=== PATIENT | male | born 1945 | race Caucasian/White ===

== ENCOUNTER → 2021-01-20 16:12 | Outpatient (REF) | payer MEDICARE, OTHER, SELFPAY | LOC: ANHLAB 16:12 | PROVIDERS: PCP Internal Medicine; Visit Provider Nurse Practitioner | DX: L30.8 Other specified dermatitis (principal) | CPT/HCPCS: 88305 ==

== ENCOUNTER → 2021-09-22 11:28 | Outpatient (CLI) | payer MEDICARE, OTHER, SELFPAY ==
--- NOTE | ~2021-09-22 | CT_ITS ---
EXAMINATION: CT pelvis wo con DATE: 09/22/2021 11:58 INDICATION: Left lower quadrant pain TECHNIQUE: Computed tomography (CT) of the pelvis was performed without intravenous contrast. The dos e-length product (DLP) was 605.54 mGy-cm. Automated exposure control and iterative reconstruction josh hnique were employed. COMPARISON: None FINDINGS: The pelvic viscera are unremarkable. There is a partially imaged 6 cm cyst of the right kid delia. There are no pathologically enlarged pelvic lymph nodes. Calcified atherosclerosis is noted. The re is moderate to severe lower lumbar spondylosis. There are small inguinal hernias containing fat. IMPRESSION: 1. No CT correlate for the patient's symptoms. Reviewed, dictated and finalized at location F. [facility] DIP [facility]
== END ==
PROVIDERS: Visit Provider Surgery
DX: R10.32 Left lower quadrant pain (principal)
CPT/HCPCS: 72192

== ENCOUNTER 2021-11-05 07:41 | Outpatient (CLI) | payer MEDICARE, OTHER, SELFPAY ==
--- NOTE | 2021-11-05 08:30 | ECG_ITS ---
Measurements Intervals [place] Rate: 65 P: -84 NE: 213 QRS: 49 QRSD: 162 T: 31 QT: 447 QTc: 468 Interpretive Statements SINUS OR ECTOPIC ATRIAL RHYTHM WITH FIRST DEGREE AV BLOCK VENTRICULAR PREMATURE COMPLEX RIGHT BUNDLE BRANCH BLOCK INFERIOR INFARCT, AGE INDETERMINATE BASELINE ARTIFACT- I, II, III, AVR, AVL, AVF, V3-V6 ABNORMAL ECG Electronically Signed On 11-05-2021 9:16:07 [employer] by Brad Baldwin D.O.
[2021-11-05 08:59] LABS: Anion Gap 5 mmol/L (8-16); Blood Urea Nitrogen 17 mg/dL (9-20); Calcium 8.7 mg/dL (8.4-10.2); Carbon Dioxide 29 mmol/L (22-30); Chloride 100 mmol/L (98-107); Estimated Glomerular Filt Rate > 60; Glucose 282 mg/dL (65-110); Potassium 4.4 mmol/L (3.4-5.0); Sodium 134 mmol/L (137-145)
== END 2021-11-05 07:42 | disposition home or self-care (01) ==
LOC: ANHSURGERY 07:46
PROVIDERS: Anesthesiology; PCP Internal Medicine; Visit Provider Surgery
DX: K40.20 Bilateral inguinal hernia, without obstruction or gangrene, not specified as recurrent (principal); E11.9 Type 2 diabetes mellitus without complications; E78.00 Pure hypercholesterolemia, unspecified; Z01.818 Encounter for other preprocedural examination; I45.10 Unspecified right bundle-branch block; I44.0 Atrioventricular block, first degree
CPT/HCPCS: 36415; 80048; 86850; 86900; 86901; 93005

== ENCOUNTER 2021-11-10 01:31 | Day surgery (SDC) | payer MEDICARE, OTHER, SELFPAY ==
--- NOTE | 2021-11-03 09:53 | PC.NURSE ---
Report to the Outpatient Waiting Room, entrance under the green pavilion located off [facility], at time _0630 on date __11/10/21 . OR Time: . - You and your visitor will be asked a series of questions to screen for COVID 19 for your protection. - A mask is required within the hospital. Preoperative COVID Testing Requirements: No COVID Test needed if: (proof is required; if not received patient will have Rapid Test prior to entry) - Patient has received COVID Vaccine at least 14 days prior to procedure date or - Patient has positive COVID test result within last 90 days of surgery date. COVID Test needed if above criteria is not met If not COVID vaccinated a COVID test must be conducted within 72 hours of surgery and patient is asked to isolate self from time of testing until procedure. You will go to the [facility] for your COVID testing. The [facility] site is located at the corner of [address] [facility]. You will only be called if COVID results are positive and your surgeon may reschedule your elective surgery date. Patients may have clear liquids (water, carbonated beverages, clear teas, apple juice) until 3 hours prior to surgery with a maximum of 20 ounces. - No food from midnight until time of surgery - Infants may have breast milk until 4 hours before surgery, formula 6 hours prior to surgery. - Children will be allowed to drink immediately following surgery. If applicable, please bring a bottle or sippy cup to assist with drinking. Juice, water, soda, and popsicles are readily available. For infants on formula, please bring formula the day of surgery. Pacifiers are allowed. Take the following medications with a SIP of water the morning of surgery: _RANOLAZINE Medications to discontinue per physician __CLOPIDOGREL 5-7 DAYS PRE OP PER DR BAXTER Date to take last dose Please no make-up, nail citizen of [place], hairspray, perfume, deodorant, or body powder the day of surgery. No jewelry (including any body piercings) or valuables the day of surgery, leave them at home. Please take a shower or bath the night before, or the morning of, surgery with an antibacterial soap. Wear comfortable, loose fitting clothing. Children are encouraged to wear pajamas. - Jewelry must be removed prior to entering the operating room. Rings and piercings that are not removed may be cut off. - The hospital will not accept responsibility for valuables. - Please leave all valuables, including medications, at home the day of surgery. HIBICLENS SHOWER MORNING OF SURGERY If you are going home after surgery, a licensed team cdl driver must drive you home. - NO public transportation without another adult. - We recommend that an adult stay with you for 24 hours following discharge. - We also recommend that you do not drive, make important decision, drink alcoholic beverages, or take any drugs that were not prescribed by your health care provider for at least 24 hours after your discharge time. One visitor will be allowed to accompany the patient into the hospital. Patients visitor will be instructed to remain with patient at all times or leave the building. We will allow the visitor to come back to the postoperative area when patient is ready. Follow any additional instructions given to you from your surgeon. Telephone instructions given to _PATIENT and asked if any additional questions and then verbalized understanding. Patient advised to call surgeon office or pre surgery nurse liaison [phone] if any additional questions.
[2021-11-03 10:01] VITALS: BMI 31.6
--- NOTE | 2021-11-09 09:40 | WPDANESEPPF ---
Anes - Initial Pre Proc Eval Procedure: Operation Date: 11/10/21 08:30 Proposed Procedures p Laparoscopic Bilateral Inguinal Hernia Repair with Mesh, Davinci Assisted - Manuel Frazier DO Date/Time: 11/09/21 09:40 Surgeon: Manuel Frazier DO Pre Op Diagnosis: bilat inguinal hernia Patient Data Age: 76 Gender: M Height: 1.85 m Weight: 108.9 kg Allergies Allergy/AdvReac Type Severity Reaction Status Date / Time paroxetine Allergy Severe WILD Verified 11/10/21 06:40 DREAMS, WAKE UP ON FLOOR. Home Medications Medication Instructions Recorded Confirmed Type aspirin [Aspirin Childrens] 81 mg PO DAILY 08/16/19 11/10/21 History ranolazine 500 mg PO Q12H 08/16/19 11/10/21 History sitagliptin 50 mg-metformin 1,000 See Rx Instructions .ROUTE 05/26/20 11/10/21 Rx mg tablet .COMPLEX #60 tablet atorvastatin 10 mg tablet See Rx Instructions .ROUTE 09/07/21 11/10/21 Rx .COMPLEX #90 tablet glimepiride 2 mg tablet 1 mg PO QAM #45 tablet 09/07/21 11/10/21 Rx clopidogrel 75 mg PO QPM 11/03/21 11/10/21 History lisinopril 20 mg PO QPM 11/03/21 11/10/21 History metoprolol succinate 25 mg PO QPM 11/03/21 11/10/21 History Patient hx anesthesia problems: none Family hx anesthesia problems: none Results Review: All pre-operative results and documents have been reviewed as part of the pre-operative evaluation. 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 [facility] Gastrointestinal disorder Hiatal hernia Gout Hypercholesteremia Hypertension Musculoskeletal disorder Fell down deck stairs in 2017, left quad tendon rupture, history of falls Myocardial infarction 1987 Respiratory disorder Pleural plaques from asbestos Sleep apnea Surgical History Surgical History (Updated 11/09/21 @ 09:40 by Jim Kasper DO) H/O angioplasty H/O cardiac catheterization 2014 History of cholecystectomy History of coronary artery stent placement History of orthopedic surgery Meniscus repair Family History Family History Father Family history of heart disease in male family member before age 55 Mother Family history of heart disease in male family member before age 55 Other Hypertension Social History Social History Smoking packs per day: 2.5 Smoking cigarettes per day: 50.0 Years smoked: 35 Smoking pack-years: 87.50 Smoking status: Former smoker Tobacco type: cigarettes Smoking end date: 09/12/95 Alcohol intake: never Living arrangements: with family Spiritual care concerns: No Anes - Eval Final PreProcedure Day of Procedure 11/09/21 09:40 Patient weight: obese Heart: regular rate and rhythm Lungs: clear to auscultation and normal air movement Airway: Mallampati scale class III Neurological: alert and oriented Last oral intake: >/= 8 hours ASA classification: III Emergent: no Anesthetic plan: proceed Anesthesia type and monitoring: general ETT and standard monitoring Results Review: All pre-operative results and documents have been reviewed as part of the pre-operative evaluation. Informed Consent: The patient's anesthetic plan and its attendant risks and benefits were discussed with the patient/family/POA. Questions were solicited and answers provided to the satisfaction of the patient/family/POA.
[2021-11-10] VITALS (9 sets, daily range): BP systolic 104–135; BP diastolic 52–73; PULSE 60–72; RESP 13–18; TEMP 36.3–36.9; O2SAT 97–100
[2021-11-10] MEDS: LACTATED RINGERS 1,000 ML 30 ML IV CONT ×2 (07:00→10:25)
[2021-11-10] MEDS: ACETAMINOPHEN 500 MG TABLET 1000 MG PO (07:10)
[2021-11-10 07:20] LABS: Glucose Point of Care 164 mg/dl (65-105)
--- NOTE | 2021-11-10 07:20 | PM.IMHP ---
H&P: HPI History of Present Illness Date/Time: 11/10/21 07:20 Chief Complaint: bilateral inguinal hernia Narrative: 76 yo man presents for bilateral inguinal hernia repair. He was presenting mostly with LLQ pain and CT showed evidence of small bilateral inguinal hernias. Review of Systems Review of Systems: All systems reviewed & are unremarkable except as noted in HPI and below Constitutional: Constitutional: Denies chills, Denies fever(s), Denies headache(s) and Denies weight loss Eyes: Eyes: Denies change in vision ENT: Denies dizziness, Denies headache(s), Denies neck mass and Denies throat swelling Cardiovascular: Cardiovascular: Denies chest pain, Denies lightheadedness and Denies dyspnea Respiratory: Respiratory: Denies cough, Denies dyspnea and Denies wheezing Gastrointestinal: Gastrointestinal: Denies abdominal pain, Denies change in bowel habits, Denies nausea and Denies vomiting Genitourinary: Genitourinary: Denies hematuria and Denies dysuria Musculoskeletal: Musculoskeletal: Reports as per HPI Integumentary/Breasts: Skin/Breast: Reports as per HPI Neurologic: Denies dizziness and Denies headache(s) Allergic/Immunologic: Allergic/Immunologic: Denies throat swelling and Denies wheezing [facility] Past Medical History Medical History (Updated 11/10/21 @ 07:21 by Manuel Frazier DO) Anxiety Arthritis Asthma BPH (benign prostatic hyperplasia) Congestive heart failure Coronary artery disease Angioplasty and cardiac stent placed 2014, 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 [facility] Gastrointestinal disorder Hiatal hernia Gout Hypercholesteremia Hypertension Musculoskeletal disorder Fell down deck stairs in 2018, left quad tendon rupture, history of falls Myocardial infarction 1987 Respiratory disorder Pleural plaques from asbestos Sleep apnea Surgical History Surgical History (Updated 11/09/21 @ 09:40 by Jim Kasper DO) H/O angioplasty H/O cardiac catheterization 2014 History of cholecystectomy History of coronary artery stent placement History of orthopedic surgery Meniscus repair Family History Family History Father Family history of heart disease in male family member before age 55 Mother Family history of heart disease in male family member before age 55 Other Hypertension Social History Social History Smoking packs per day: 2.5 Smoking cigarettes per day: 50.0 Years smoked: 35 Smoking pack-years: 87.50 Smoking status: Former smoker Tobacco type: cigarettes Smoking end date: 09/12/95 Alcohol intake: never Living arrangements: with family Spiritual care concerns: No Meds Home Medications and Allergies Home Medications Medication Instructions Recorded Confirmed Type aspirin [Aspirin Childrens] 81 mg PO DAILY 08/16/19 11/10/21 History ranolazine 500 mg PO Q12H 08/16/19 11/10/21 History sitagliptin 50 mg-metformin 1,000 See Rx Instructions .ROUTE 05/26/20 11/10/21 Rx mg tablet .COMPLEX #60 tablet atorvastatin 10 mg tablet See Rx Instructions .ROUTE 09/07/21 11/10/21 Rx .COMPLEX #90 tablet glimepiride 2 mg tablet 1 mg PO QAM #45 tablet 09/07/21 11/10/21 Rx clopidogrel 75 mg PO QPM 11/03/21 11/10/21 History lisinopril 20 mg PO QPM 11/03/21 11/10/21 History metoprolol succinate 25 mg PO QPM 11/03/21 11/10/21 History Allergies Allergy/AdvReac Type Severity Reaction Status Date / Time paroxetine Allergy Severe WILD Verified 11/10/21 06:40 DREAMS, WAKE UP ON FLOOR. Exam Const: General: no acute distress and alert Orientation/consciousness: patient oriented x3 HENMT: Head: normocephalic and atraumatic Ears: hearing grossly normal bilaterally General nose exam: Normal nares present Mouth: Yes Normal oral and palatal mucosa present Eyes: Periorbital: periorbital findings normal Sclera: scle
--- NOTE | 2021-11-10 07:22 | WPDHPUPDATE1 ---
History and Physical Update Update Date/Time: 11/10/21 07:22 History and Physical has been reviewed, including an updated exam of the patient. There are NO changes in the patient's condition. Risks, benefits, and alternatives have been discussed and questions answered. Patient agrees to proceed with procedure.
[2021-11-10] MEDS: KETOROLAC 15 MG/ML VIAL (*BKC) IV PUSH (08:03)
[2021-11-10] MEDS: ceFAZolin 2 GM/D5W 50 ML 2 GM/50 ML BAG IVPB (08:33)
--- NOTE | 2021-11-10 10:20 | W.PM.PROC2 ---
Procedure Note - Detailed Date of Procedure 11/10/21 Pre-op Diagnosis bilateral inguinal hernia Post-op Diagnosis same (Bilateral direct inguinal hernias) Procedure Performed Laparoscopic bilateral inguinal hernia repair with mesh, da Aubrey assisted Surgeon Manuel Frazier DO Anesthesia general and local (0.5% bupivacaine with epinephrine) Indications This is a 76-year-old man who presented with left lower quadrant and left groin pain for the past couple months. His pain was worse with activity. On exam it was difficult to appreciate a definite hernia. A CT of his pelvis was obtained and this showed evidence of small bilateral fat containing inguinal hernias. Discussions were made with the patient about treatment options and decision was made to proceed with laparoscopic bilateral inguinal hernia repair with mesh, da Aubrey assisted. Findings Laparoscopic bilateral inguinal hernia repair was performed. A robotic transabdominal preperitoneal approach was utilized. The patient was found to have bilateral direct inguinal hernias. These were small and only contained preperitoneal fat. No other significant abnormalities were identified. He did have some adhesions in the right upper quadrant from his previous open cholecystectomy. A preperitoneal pocket was created on each side and a large 3DMax mid mesh was placed on each appropriate side. No specimens were obtained for pathology. Description of Procedure Procedure as well as risks, benefits, and alternatives were discussed with the patient. Written consent was obtained and placed in chart prior to procedure. Patient was brought back to surgical suite. He was placed supine on operating table. Time-out was done to confirm patient and procedure. He was then intubated by Anesthesia Department. His abdomen was prepped and draped in sterile fashion using chlorhexidine prep. 0.5% bupivacaine with epinephrine was infiltrated at each location for incision. An 8 mm incision was made in the left lateral abdomen, and a 5 mm Optiview trocar was advanced through the abdominal layers under direct visualization. Once inside the abdominal cavity, carbon dioxide insufflation was used to create a pneumoperitoneum. A camera was inserted and the abdominal cavity was inspected. The patient was placed in slight Trendelenburg position. An 8 millimeter incision was made on the right lateral abdomen and an 8 millimeter trocar was inserted under direct visualization. Another 8 millimeter incision was made just superior to the umbilicus and an 8 millimeter trocar was inserted under direct visualization. The 5 mm port was then removed and this was replaced with another 8 mm robotic port. The robotic arms were brought up to the patient's bedside and secured to the ports. The camera and instruments were inserted. I then moved over to the robotic console and took control of the camera and instruments. After careful inspection of the abdominal cavity, I began scoring the peritoneum along the left lower quadrant using scissors with electrocautery. The preperitoneal plane was entered and this was carefully dissected caudally along the inferior epigastric vessels. Careful dissection with scissors with electrocautery and blunt dissection was used to continue this dissection. I dissected far enough laterally to allow for mesh placement, and also dissected medially to identify the pubic arch and William's ligament. The hernia sac was identified and carefully dissected posteriorly. The cord contents were also identified and the peritoneum was carefully dissected far enough posteriorly to allow for mesh placement. Once an adequate pocket was created, I then placed the mesh within the preperitoneal pocket and carefully unfolded it. The mesh was centered on the hernia defect with adequate overlap circumferentially. The inferior edge of the mesh was inspected to ensure that it was far enough away from the peritoneal edge. The mesh appea
[2021-11-10 10:32] LABS: Glucose Point of Care 177 mg/dl (65-105)
== END 2021-11-10 12:50 | disposition home or self-care (01) ==
PROVIDERS: PCP Internal Medicine; Visit Provider Surgery
PROC: 8E0Y4CZ Robotic Assisted Procedure of Lower Extremity, Percutaneous Endoscopic Approach (ICD-10-PCS; CPT 49650; principal; 2021-11-10 08:30)
DX: K40.20 Bilateral inguinal hernia, without obstruction or gangrene, not specified as recurrent (principal); I11.0 Hypertensive heart disease with heart failure; I50.9 Heart failure, unspecified; E78.00 Pure hypercholesterolemia, unspecified; E11.9 Type 2 diabetes mellitus without complications; N40.0 Benign prostatic hyperplasia without lower urinary tract symptoms; I25.10 Atherosclerotic heart disease of native coronary artery without angina pectoris; J45.909 Unspecified asthma, uncomplicated; F41.9 Anxiety disorder, unspecified; M10.9 Gout, unspecified; I25.2 Old myocardial infarction; J92.0 Pleural plaque with presence of asbestos; G47.30 Sleep apnea, unspecified; Z79.84 Long term (current) use of oral hypoglycemic drugs; Z79.82 Long term (current) use of aspirin; Z79.02 Long term (current) use of antithrombotics/antiplatelets; Z95.5 Presence of coronary angioplasty implant and graft; Z87.891 Personal history of nicotine dependence; E66.9 Obesity, unspecified; Z68.32 Body mass index [BMI] 32.0-32.9, adult
CPT/HCPCS: 49650; S2900; 82948; A9270; C1781; J0330; J0690; J1100; J1885; J2270; J2405; J2704; J7030; J7120

== ENCOUNTER → 2022-03-26 02:04 | Outpatient (CLI) | payer MEDICARE, OTHER, SELFPAY ==
[2022-03-26 17:31] LABS: SARS-CoV-2 RNA PCR Negative
== END ==
PROVIDERS: PCP Internal Medicine; Visit Provider Nurse Practitioner
DX: R68.89 Other general symptoms and signs (principal); Z20.822 Contact with and (suspected) exposure to COVID-19
CPT/HCPCS: C9803; U0003; U0005

== ENCOUNTER 2023-02-08 12:08 | Outpatient (NON) | payer MEDICARE, OTHER, SELFPAY | END 2023-02-08 12:09 | disposition home or self-care (01) | LOC: ANHLAB 02-09 12:11 | PROVIDERS: PCP Family Medicine; Visit Provider Nurse Practitioner | DX: L82.1 Other seborrheic keratosis (principal) | CPT/HCPCS: 88305 ==

== ENCOUNTER 2023-12-10 11:50 | Emergency (ER) | payer MEDICARE, OTHER, SELFPAY ==
[2023-12-10 12:32] VITALS: BP 147/70; PULSE 68; RESP 18; TEMP 36.8; O2SAT 97
--- NOTE | 2023-12-10 13:13 | ED.GENADULT ---
HPI - General Adult General Chief complaint: Eye Problems Stated complaint: lt eye irritation Time Seen by Provider: 12/10/23 13:13 Source: patient, RN notes reviewed and old records reviewed Mode of arrival: ambulatory Limitations: no limitations History of Present Illness HPI narrative: 78-year-old male presents to the [facility] with complaints of left eye tearing and feeling like the bags under his eyes ordered larger than normal. Has a gritty feeling but no foreign body sensation, no visual changes, no pain. Also has complaints of a runny nose for ?years. ? Patient denies using contact lenses. Patient does were glasses Symptoms started Tuesday, 3 days ago after he cut some grass. Denies any pain. Denies any trauma to the eye. Does not feel like there is a foreign body in the eye No treatment prior to arrival Onset (ago): day(s) (3) Treatments prior to arrival: none Related Data Home Medications Medication Instructions Recorded Confirmed aspirin 81 mg chewable tablet 81 mg PO DAILY 08/16/19 10/05/22 (Aspirin Childrens) ranolazine 500 mg tablet,extended 500 mg PO Q12H 08/16/19 10/05/22 release,12 hr cholecalciferol (vitamin D3) 25 25 mcg PO DAILY 02/03/23 mcg (1,000 unit) capsule Allergies Allergy/AdvReac Type Severity Reaction Status Date / Time paroxetine Allergy Severe WILD Verified 12/10/23 12:43 DREAMS, WAKE UP ON FLOOR. povidone-iodine Allergy Mild Rash Verified 12/10/23 12:43 [From Betadine] Review of Systems Review of Systems: All systems reviewed & are unremarkable except as noted in HPI and below Constitutional: Constitutional: Reports no additional constitutional complaints Eyes: Eyes: Reports as per HPI, Reports eye discharge (Clear, tearing), Reports irritation and Reports itchy eyes ENT: Reports as per HPI and Reports nasal discharge Cardiovascular: Cardiovascular: Reports no additional cardiovascular complaints, Denies chest pain and Denies dyspnea Respiratory: Respiratory: Reports no additional respiratory complaints, Denies chest congestion, Denies cough and Denies dyspnea Gastrointestinal: Gastrointestinal: Reports no additional gastrointestinal complaints, Denies abdominal pain, Denies nausea and Denies vomiting Musculoskeletal: Musculoskeletal: Reports no additional musculoskeletal complaints Integumentary/Breasts: Skin/Breast: Reports system reviewed and no additional complaints, except as docu Neurologic: Reports system reviewed and no additional complaints, except as documented Psychiatric: Psychiatric: Reports no additional psychiatric complaints Allergic/Immunologic: Allergic/Immunologic: Reports no additional allergic/immunologic complaints [facility] Past Medical History Medical History Anxiety Arthritis Asthma BPH (benign prostatic hyperplasia) Congestive heart failure Coronary artery disease Angioplasty and cardiac stent placed 2014, 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 [facility] Diabetes Distal radial fracture Gastrointestinal disorder Hiatal hernia Gout Hypercholesteremia Hypertension Mixed hyperlipidemia Musculoskeletal disorder Fell down deck stairs in 2017, left quad tendon rupture, history of falls Myocardial infarction 1987 Respiratory disorder Pleural plaques from asbestos Sleep apnea Surgical History Surgical History H/O angioplasty H/O cardiac catheterization 2014 History of cholecystectomy History of coronary artery stent placement History of orthopedic surgery Meniscus repair Family History Family History Father Family history of heart disease in male family member before age 55 Mother Family history of heart disease in male family member before age 55 Other Hypertension Social History Social History (Reviewed 12/10/23 @ 18:32 by Ana Beltran, APR
== END 2023-12-10 13:35 | disposition home or self-care (01) ==
PROVIDERS: Emergency Provider Nurse Practitioner; PCP Family Medicine
DX: H10.9 Unspecified conjunctivitis (principal); Z87.891 Personal history of nicotine dependence; M19.90 Unspecified osteoarthritis, unspecified site; J45.909 Unspecified asthma, uncomplicated; N40.0 Benign prostatic hyperplasia without lower urinary tract symptoms; I25.10 Atherosclerotic heart disease of native coronary artery without angina pectoris; Z95.5 Presence of coronary angioplasty implant and graft; E11.9 Type 2 diabetes mellitus without complications; M10.9 Gout, unspecified; E78.00 Pure hypercholesterolemia, unspecified; I10 Essential (primary) hypertension; E78.2 Mixed hyperlipidemia; I25.2 Old myocardial infarction; Z79.82 Long term (current) use of aspirin
CPT/HCPCS: 99213; G0463

== ENCOUNTER 2025-06-20 12:53 | Emergency (ER) | payer MEDICARE, OTHER, SELFPAY ==
[2025-06-20] VITALS (9 sets, daily range): BP systolic 110–138; BP diastolic 57–82; PULSE 52–75; RESP 18–20; TEMP 36.4; O2SAT 93–100
--- NOTE | ~2025-06-20 | CT_ITS ---
EXAMINATION: CT LE LT wo con DATE: 06/20/2025 15:27 INDICATION: Abnormal left femur x-ray post fall TECHNIQUE: High resolution computed tomography (CT) of the left femur from the hip to [id number] was performed without intravenous contrast. Additional sagittal and coronal reconstructions were performed. Automated exposure control and iterative reconstruction technique were employed. The dose-length product was 1231.62 mGy-cm. COMPARISON: Radiographs dated 06/30/2025 and 11/20/2017 FINDINGS: Bone alignment is normal. No fracture. Mild osteoarthritis at the left hip with no joint effusion. Left knee joint space appears relatively preserved on nonweightbearing imaging. No left knee joint effusion. There are a few small chronic heterotopic ossicles in the thickened distal quadriceps tendon campos ggesting sequela of chronic tear and/or surgery. There are 3 lucent likely suture anchor tracks along the superficial aspect of the proximal patellar suggesting prior quadriceps tendon repair. There is suggestion of a subtle ovoid intramuscular hematoma within the left vastus lateralis muscle at the proximal to mid left thigh which measures approximately 4.7 x 3.1 cm in transaxial dimensions and extends proximally 9 cm craniocaudally. Subcutaneous edema along the lateral aspect of the left thigh most prominent over the region of the suspected hematoma. No free fluid in the visualized pelvis. No pathologically enlarged left pelvic or inguinal lymphadenopathy. IMPRESSION: 1. Suggestion of an intramuscular hematoma along the proximal left vastus lateralis muscle. No acute osseous adenopathy. 2. Suture anchor tracks at the proximal patella consistent with prior quadriceps tendon repair with a few small small chronic heterotopic ossicles in the thickened tendon which are likely sequela of trauma or surgery. Correlate with clinical/surgical history. Reviewed, dictated and finalized at location A. IMPRESSION: 1. Suggestion of an intramuscular hematoma along the proximal left vastus later riki muscle. No acute osseous adenopathy. 2. Suture anchor tracks at the proximal patella consistent with prior quadricep s tendon repair with a few small small chronic heterotopic ossicles in the thic kened tendon which are likely sequela of trauma or surgery. Correlate with clin ical/surgical history.
--- NOTE | ~2025-06-20 | CT_ITS ---
EXAMINATION: CT brain wo con DATE: 06/20/2025 13:24 INDICATION: Fall with head injury TECHNIQUE: Computed tomography (CT) of the head was performed without intravenous contrast. Sagittal and coronal reconstructions were performed. The mA was adjusted according to patient size. Iterative reconstruction technique was employed. The dose-length product was 605.33 mGy-cm. COMPARISON: head CT dated 03/02/2009 FINDINGS: Moderate-sized right frontal scalp hematoma. No fracture. No acute intracranial hemorrhage, acute infarction or abnormal extra axial fluid collection. There is mild scattered white matter hypoattenuation consistent with chronic small vessel ischemic disease. Symmetric prominence of the sulci and ventricles consistent with mild age-appropriate diffuse cerebral volume loss. No mass/mass effect. Changes of bilateral intraocular lens replacement. The orbits, paranasal sinuses and mastoid air cells are normal. Intracranial calcified cerebral atherosclerosis is noted. IMPRESSION: 1. Right frontal scalp hematoma. No fracture or acute intracranial process. 2. Age-related changes including mild diffuse volume loss and mild scattered white matter hypoattenuation consistent with chronic small vessel ischemic disease. Reviewed, dictated and finalized at location A. IMPRESSION: 1. Right frontal scalp hematoma. No fracture or acute intracranial process. 2. Age-related changes including mild diffuse volume loss and mild scattered wh ite matter hypoattenuation consistent with chronic small vessel ischemic diseas e.
--- NOTE | ~2025-06-20 | XR_ITS ---
Clinical history:Fall. Injury. EXAM:X-ray femur left minimum 2 views TECHNIQUE:4 images of the left Comparisons:11/20/2017 FINDINGS: There is bowel gas and stool projecting over the pelvis which limits evaluation. Mild degenerative change in the left hip. No fracture identified about the left hip. There are two less than 7 mm radiopaque densities about the suprapatellar space. Differential includes avulsion fractures of indeterminate age or loose bodies. Other etiologies are possible. Bones appear osteopenic. [ No sclerotic bone lesions.] Small left-sided suprapatellar effusion. Soft tissue swelling about the left knee. IMPRESSION: 1. No fracture identified about the left hip. 2.There are two less than 7 mm radiopaque densities about the suprapatellar space. Differential includes avulsion fractures of indeterminate age or loose bodies. Other etiologies are possible. If the patient cannot bear weight, an MRI is recommended. Reviewed, dictated and finalized at location Q. IMPRESSION: 1. No fracture identified about the left hip. 2.There are two less than 7 mm radiopaque densities about the suprapatellar spa ce. Differential includes avulsion fractures of indeterminate age or loose bodi es. Other etiologies are possible. If the patient cannot bear weight, an MRI is recommended.
--- NOTE | ~2025-06-20 | CT_ITS ---
EXAMINATION: CT facial & cervical spine wo COMPARISON: None HISTORY: fall, facial injury TECHNIQUE: Axial images were obtained without IV contrast. Sagittal, coronal reconstruction images were obtained from the axial views. CT scan performed using dose optimization techniques including the following automated exposure control; adjustment of mA and/or kV; use of iterative reconstruction technique. Automatic exposure control was used to reduce radiation dose. Permanent radiation dose record is archived to PACS. FINDINGS: CT FACIAL BONES: The nasal bones are intact. The anterior maxillary sinus hyman and zygomatic arches are intact. Temporomandibular joints are intact. Orbital floors and medial orbits are intact. There is no retrobulbar hemorrhage. Minimal soft tissue swelling noted overlying the right zygomatic arch with minimal right-sided preseptal swelling. The remaining soft tissues are unremarkable. CT cervical spine: Soft tissues unremarkable. The lung apices demonstrate partially imaged small right pleural effusion. No fracture or subluxation identified. There is severe loss of disc height at C3-4, C4-5 C5-6 and C6-7 with moderate to severe canal and foraminal stenosis. Outpatient MRI is recommended. IMPRESSION: 1. Posttraumatic soft tissue changes. No acute fractures identified in the facial bones or cervical spine. Incidental findings above Reviewed, dictated and finalized at location P. IMPRESSION: 1. Posttraumatic soft tissue changes. No acute fractures identified in the faci al bones or cervical spine. Incidental findings above
--- NOTE | 2025-06-20 15:00 | ED_ITS ---
HPI - General Adult General Chief complaint: Fall Stated complaint: Head/hip injury after fall 2 days ago,+anticoag Time Seen by Provider: 06/20/25 13:51 History of Present Illness HPI narrative: Lj Young is a 80-year-old male who presents today after a fall that he had 3 days ago. Explains that he was having a bad dream and he fell out of bed striking his head on the table and his left at femur on the bed rail. He states he is able to get himself back up there is a small cut his forehead he went to the bathroom cleaning it up and put some antibiotic ointment over he was feeling okay. Later that day he did go to a different follow-up appointment with his factory hand and came back home. He then followed up with his primary regarding the fall because he started to get quite a large bruise on his face and his primary said he need to go to the emergency room. He states that he is on Eliquis recently as he is scheduled for a CT this upcoming Tuesday. Denies any changes with his vision states he does not even have a headache he is complaining of pain to his left hip proximal femur area, however he states that the Tylenol that he took today has improved his pain. Related Data Home Medications ?Medication ?Instructions ?Recorded ?Confirmed ?Last Taken ?Type aspirin 81 mg chewable tablet 81 mg PO DAILY 08/16/19 10/05/22 11/09/21 08:00 History (Aspirin Childrens) ranolazine 500 mg tablet,extended 500 mg PO Q12H 08/1610/05/22 11/10/21 05:00 History release,12 hr Allergies Allergy/AdvReac Type Severity Reaction Status Date / Time paroxetine Allergy Severe WILD Verified 06/20/25 14:03 DREAMS, WAKE UP ON FLOOR. povidone-iodine (From Allergy Mild Rash Verified 06/20/25 14:03 Betadine) Review of Systems Review of Systems: All systems reviewed & are unremarkable except as noted in HPI and below PMFSH Past Medical History Medical History Distal radial fracture Mixed hyperlipidemia Anxiety Diabetes Gout Arthritis Musculoskeletal disorder Fell down deck stairs in 2018, left quad tendon rupture, history of falls BPH (benign prostatic hyperplasia) Gastrointestinal disorder Hiatal hernia Sleep apnea Asthma Respiratory disorder Pleural plaques from asbestos Hypertension Hypercholesteremia Coronary artery disease Angioplasty and cardiac stent placed 2014, 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 at [facility] Congestive heart failure Myocardial infarction 1988 Surgical History Surgical History History of coronary artery stent placement History of orthopedic surgery Meniscus repair History of cholecystectomy H/O angioplasty H/O cardiac catheterization 2014 Family History Family History Father Family history of heart disease in male family member before age 55 Mother Family history of heart disease in male family member before age 55 Other Hypertension Social History Social History Smoking packs per day: 2.5 Smoking cigarettes per day: 50.0 Years smoked: 35 Smoking pack-years: 87.50 Smoking status: Former smoker Tobacco type: cigarettes Smoking end date: 09/12/95 Alcohol intake: never Lack of Transportation: No Lack of Food: Never True Current Housing: I Have Housing Concerned About Future Housing: No Difficulty Paying Gas/Electric Bills: No Difficulty Paying for Meds: No Currently Unemployed: No Education: Decline to Answer Difficulty w/ Childcare or Family Care: Decline to Answer Living arrangements: with family Spiritual care concerns: No Exam Narrative: GENERAL: Well-appearing, well-nourished, and in no acute distress. HEAD: Moderate ecchymosis around the right forehead and right eye EYES: PERRLA and EOMI no nystagmus noted ENT: Nares clear, no rhinorrhea or epistaxis. Mucous membranes moist. Oropharynx without tonsillar hypertrophy exudate or other lesions. Bilateral TMs pearly church nonbulging NECK: Supple. No adenopathy or masses. No carotid bruits or JVD CHEST: Clear to auscultation. No respiratory distress. No wheezes rales or rhonchi HEART: Regular rate and rhythm. No murmur heard. Normal peripheral pulses. ABDOMEN: Soft, nontender, nondistended, normal active bowel sounds. EXTREMITIES: Pain over the lateral left femur. SKIN: Warm, dry, no rash. NEURO: No focal deficits. Alert and oriented x3. PSYCH: Normal mood and affect. Course Vital Signs Vital signs: Vital Signs Temperature 36.4 C L 10/09/25 13:02 Pulse Rate 75 06/20/25 13:02 Respiratory Rate 18 06/20/25 13:02 Blood Pressure 126/57 L 06/20/25 13:02 Pulse Oximetry 99 06/20/25 13:02 Oxygen Delivery Room Air 06/20/25 13:02 Temperature 36.4 C L 06/20/25 13:02 Pulse Rate 52 L 06/20/25 14:04 Respiratory Rate 20 06/20/25 14:04 Blood Pressure 138/74 06/20/25 15:02 Pulse Oximetry 93 06/20/25 16:16 Oxygen Delivery Room Air 06/20/25 14:04 Medical Decision Making MDM Narrative Medical decision making narrative: 80-year-old male who presents today after having a fall from his bed 3 days ago. He states that he hit his face on the table and hit his left hip on the side of the bed. He has been able to ambulate since the fall denies headache mostly does having pain to the left femur. He explains that he was recently started on Eliquis for an upcoming catheterization that he has scheduled his factory hand this upcoming Tuesday. He denies abdominal pain denies vomiting denies nausea denies chest pain denies shortness of breath On exam is noted to have moderate ecchymosis around the her right eye right forehead lung sounds are clear respirations even nonlabored abdomen soft nontender with palpation Concern for acute brain abnormality, hip fracture, femur fracture, contusion Imaging-1. Posttraumatic soft tissue changes. No acute fractures identified in the facial bones or cervical spine. Incidental findings above Lower Extremity CT 06/20/25 15:30 IMPRESSION: 1. Suggestion of an intramuscular hematoma along the proximal left vastus lateralis muscle. No acute osseous adenopathy. 2. Suture anchor tracks at the proximal patella consistent with prior quadriceps tendon repair with a few small small chronic heterotopic ossicles in the thickened tendon which are likely sequela of trauma or surgery. Correlate with clinical/surgical history. With the CT findings showing no acute bone abnormality likely a hematoma to the left lateral femur where he is having pain. Who went and re-evaluated patient and updated him with the findings. He is able to ambulate safely in feels comfortable going home. He is actually asking to be discharged home. Updated the has other scans are stable. Encouraged to follow-up with his primary care doctor within the week to make sure he is improving. Return precautions provided and discussed. He denies needing anything further at this time. Medical Records Medical records reviewed: Yes I reviewed the external patient's medical records. Vital Signs Vital Signs: Vital Signs Temperature 36.4 C L 06/20/25 13:02 Pulse Rate 75 06/20/25 13:02 Respiratory Rate 18 06/20/25 13:02 Blood Pressure 126/57 L 06/20/25 13:02 Pulse Oximetry 99 06/20/25 13:02 Oxygen Delivery Room Air 06/20/25 13:02 Temperature 36.4 C L 06/20/25 13:02 Pulse Rate 52 L 06/20/25 14:04 Respiratory Rate 20 06/20/25 14:04 Blood Pressure 138/74 06/20/25 15:02 Pulse Oximetry 93 06/20/25 16:16 Oxygen Delivery Room Air 06/20/25 14:04 Vitals reviewed Imaging Data Radiologist's impression: Impressions Head CT 06/20/25 13:26 IMPRESSION: 1. Right frontal scalp hematoma. No fracture or acute intracranial process. 2. Age-related changes including mild diffuse volume loss and mild scattered white matter hypoattenuation consistent with chronic small vessel ischemic disease. Femur X-Ray 06/20/25 13:30 IMPRESSION: 1. No fracture identified about the left hip. 2.There are two less than 7 mm radiopaque densities about the suprapatellar space. Differential includes avulsion fractures of indeterminate age or loose bodies. Other etiologies are possible. If the patient cannot bear weight, an MRI is recommended. Head/Cervical Spine/Facial Bones CT 06/20/25 14:01 IMPRESSION: 1. Posttraumatic soft tissue changes. No acute fractures identified in the facial bones or cervical spine. Incidental findings above Lower Extremity CT 06/20/25 15:30 IMPRESSION: 1. Suggestion of an intramuscular hematoma along the proximal left vastus lateralis muscle. No acute osseous adenopathy. 2. Suture anchor tracks at the proximal patella consistent with prior quadriceps tendon repair with a few small small chronic heterotopic ossicles in the thickened tendon which are likely sequela of trauma or surgery. Correlate with clinical/surgical history. Discharge Plan Discharge Clinical Impression: Left thigh pain Fall Qualifiers: Encounter type: initial encounter Qualified Code(s): W19.XXXA - Unspecified fall, initial encounter Concussion Qualifiers: Encounter type: initial encounter Loss of consciousness presence/duration: without LOC Qualified Code(s): S06.0X0A - Concussion without loss of consciousness, initial encounter Patient Disposition: Home Condition: Stable Instructions: Antibiotic Form, Concussion (ED) Additional Instructions: He may continue to take the Tylenol for the pain as needed. You can use ice as well to the areas of pain. Please follow-up with your primary care doctor in the next week to ensure you continue to improve. If you do develop any new or worsening symptoms unable to ambulate, confusion then return to the emergency room. Patient Language: Sinhala Prescriptions: No Action aspirin [Aspirin Childrens] 81 mg Tablet,Chewable 81 mg PO DAILY ranolazine 500 mg Tablet Extended Release 12 Hr 500 mg PO Q12H glimepiride 1 mg tablet 1 mg PO QAM Qty: 90 1RF Rx Instructions: administer with breakfast metoprolol succinate 25 mg tablet extended release 24 hr See Rx Instructions .ROUTE .COMPLEX Qty: 90 1RF Dose Instruction: TAKE 1 TABLET EVERY DAY Rx Instructions: TAKE 1 TABLET EVERY DAY losartan 25 mg tablet See Rx Instructions .ROUTE .COMPLEX Qty: 90 3RF Dose Instruction: TAKE 1 TABLET EVERY DAY Rx Instructions: TAKE 1 TABLET EVERY DAY atorvastatin 10 mg tablet See Rx Instructions .ROUTE .COMPLEX Qty: 90 1RF Dose Instruction: TAKE 1 TABLET EVERY DAY Rx Instructions: TAKE 1 TABLET EVERY DAY Follow-up/Referrals: Ramon Garzon MD [Primary Care Provider, Family Practice] - 1 Week Time of Disposition: 16:09
== END 2025-06-20 16:42 | disposition home or self-care (01) ==
PROVIDERS: Emergency Provider Nurse Practitioner Family; PCP Family Medicine
DX: S06.0X0A Concussion without loss of consciousness, initial encounter (principal); S79.922A Unspecified injury of left thigh, initial encounter; I11.0 Hypertensive heart disease with heart failure; I50.9 Heart failure, unspecified; I25.2 Old myocardial infarction; I25.10 Atherosclerotic heart disease of native coronary artery without angina pectoris; E78.2 Mixed hyperlipidemia; E11.9 Type 2 diabetes mellitus without complications; J92.0 Pleural plaque with presence of asbestos; J45.909 Unspecified asthma, uncomplicated; M19.90 Unspecified osteoarthritis, unspecified site; M10.9 Gout, unspecified; N40.0 Benign prostatic hyperplasia without lower urinary tract symptoms; G47.30 Sleep apnea, unspecified; Z95.5 Presence of coronary angioplasty implant and graft; Z87.891 Personal history of nicotine dependence; Z90.49 Acquired absence of other specified parts of digestive tract; Z79.82 Long term (current) use of aspirin; Z79.84 Long term (current) use of oral hypoglycemic drugs; Z79.899 Other long term (current) drug therapy; W06.XXXA Fall from bed, initial encounter
CPT/HCPCS: 70450; 70486; 72125; 73552; 73700; 99284